=== PATIENT | male | born 1935 | race Caucasian/White ===

== ENCOUNTER 2016-09-01 12:25 | Inpatient (IN) | payer OTHER, MEDICARE ==
[~2016-09-01] VITALS: Ht 172.7 cm; Wt 112.9 kg
[2016-09-01 15:33] VITALS: BP 129/68
[2016-09-01] MEDS ORDERED: NOVOLOG100 UNIT/1 SC (16:26)
[2016-09-01] MEDS ORDERED: ASPIRIN325 MG PO (16:27)
[2016-09-01] MEDS ORDERED: LEVOTHYROXINE100 MCG PO ×2 (16:27→16:37)
[2016-09-01] MEDS ORDERED: ACETAMINOPHEN325 M1 PO (16:28)
[2016-09-01] MEDS ORDERED: COZAAR25 MG PO (16:29)
[2016-09-01] MEDS ORDERED: DOCUSATE SODIU100 MG PO (16:30)
[2016-09-01 16:31] LABS: POINT-OF-CARE METER ID UU13113720
[2016-09-01] MEDS ORDERED: PRAVASTATIN SOD80 MG PO (16:32)
[2016-09-01] MEDS ORDERED: FIORICET,ESG1 TABLET PO (16:33)
[2016-09-01 16:50] LABS: HEMATOCRIT 38.3 % (38.0-50.0); MCH 31.5 PG (29.0-34.0); MCV 90.1 FL (86-99); MEAN PLAT.VOLUME 8.4 uM^3 (9.0-12.4); PLATELET COUNT 209 K/uL (156-360); RBC DIS.WIDTH-CV 12.2 % (11.8-14.6); RBC DIS.WIDTH-SD 39.6 % (39-53); RED BLOOD COUNT 4.25 M/uL (4.00-5.50); WHITE BLOOD COUNT 8.8 K/uL (4.1-10.2)
[2016-09-01 17:13] LABS: ALKALINE PHOSPHATASE 86 IU/L (3-129); ANION GAP 10 MEQ/L (2-14); CHLORIDE 96 MEQ/L (99-109); GFR ESTIMATE (CALCULATED) 44 mL/min/; GLUCOSE 132 mg/dL (70-99); SAMPLE HEMOLYSIS CHECK 0; SAMPLE ICTERIC CHECK 0; SAMPLE LIPEMIA CHECK 0; SODIUM 132 MEQ/L (136-147); TOTAL BILIRUBIN 0.5 MG/DL (0.0-1.0); UREA NITROGEN (BUN) 22 mg/dL (9-23)
[2016-09-01 21:32] LABS: POINT-OF-CARE METER ID UU13113720
[2016-09-02 00:32] VITALS: BP 105/51
[2016-09-02 05:31] VITALS: BP 103/53
[2016-09-02 07:21] LABS: POINT-OF-CARE METER ID UU13113720
[2016-09-02 11:44] LABS: POINT-OF-CARE METER ID UU13113720
[2016-09-02 12:52] VITALS: BP 125/62
[2016-09-02 15:00] VITALS: BP 126/83
[2016-09-02 16:32] LABS: POINT-OF-CARE METER ID UU14174215
[2016-09-02 21:34] LABS: POINT-OF-CARE METER ID UU14174215
[2016-09-03 05:50] VITALS: BP 138/66
[2016-09-03 06:59] LABS: POINT-OF-CARE METER ID UU13113720; POINT-OF-CARE USER ID ENVGAF
[2016-09-03 11:37] LABS: POINT-OF-CARE METER ID UU14174215
[2016-09-03 14:55] VITALS: BP 118/58
[2016-09-03 16:32] LABS: POINT-OF-CARE METER ID UU14174215
[2016-09-03 21:17] LABS: POINT-OF-CARE METER ID UU13113720
[2016-09-04 04:14] VITALS: BP 162/75
[2016-09-04 07:23] LABS: POINT-OF-CARE METER ID UU13113720
[2016-09-04 07:54] VITALS: BP 148/79
[2016-09-04 11:11] LABS: POINT-OF-CARE METER ID UU13113720
[2016-09-04 15:00] VITALS: BP 137/61
[2016-09-04 16:14] LABS: POINT-OF-CARE METER ID UU13113720
[2016-09-04 21:10] LABS: POINT-OF-CARE METER ID UU13113720
[2016-09-05 06:27] VITALS: BP 153/78
[2016-09-05 07:08] LABS: POINT-OF-CARE METER ID UU14174215; POINT-OF-CARE USER ID ENVGAF
[2016-09-05 07:15] VITALS: BP 126/75
[2016-09-05] MEDS ORDERED: FIORICET,ESG1 TABLET PO (09:58)
[2016-09-05 11:15] LABS: POINT-OF-CARE METER ID UU14174215; POINT-OF-CARE USER ID ENVGAF
== END 2016-09-05 11:22 | disposition home or self-care (01) | DRG 57 ==
LOC: 3WEST 12:25
PROVIDERS: Psychiatry & Neurology Neurology
PROC: F07M0ZZ Range of Motion and Joint Mobility Treatment of Musculoskeletal System - Whole Body (ICD-10-PCS; principal; 2016-09-01)
DX: I69.354 Hemiplegia and hemiparesis following cerebral infarction affecting left non-dominant side (principal); E11.9 Type 2 diabetes mellitus without complications; I25.10 Atherosclerotic heart disease of native coronary artery without angina pectoris; E03.9 Hypothyroidism, unspecified; Z95.1 Presence of aortocoronary bypass graft; Z86.711 Personal history of pulmonary embolism; Z79.4 Long term (current) use of insulin; Z79.82 Long term (current) use of aspirin; Z96.659 Presence of unspecified artificial knee joint
CPT/HCPCS: 80053; 82948; 85027; 97110 GO; 97530 GP; J1650; J1815